=== PATIENT | male | born 2000 | race Two or more races ===

== ENCOUNTER 2025-06-03 09:30 | Outpatient (RCR) | payer MEDICAID, SELFPAY ==
--- NOTE | 2025-05-26 11:15 | PT.OIERPT ---
PT OP Initial Eval Patient Information Outpatient Physical Therapy Treatment Date: 05/26/25 Visit Reasons: RT hand post op Medical Diagnosis: [id number]; s62.336a Treatment Dx #1: Right Hand Pain Treatment Dx #2: Right Hand Weakness Start of Care: 05/26/25 Date of Onset: 04/30/25 Smoking Status Smoking Status: Never smoker Initial Assessment Subjective: Pt is a 24 y/o male reports of right pinky fracture from hitting a wall. Pt was s/p ORIF 03/23/25 with k-wire; k-wire removed 04/30/25. Pt still has pain 7/10 with activities. Pt has limitation with gripping, lifting, chores, self care, work duties, and performing recreational activities. 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
--- NOTE | 2025-06-01 14:20 | PT.ODAYNRPT ---
PT Outpatient Daily Note OP Daily Note Outpatient Physical Therapy Treatment Date: 06/01/25 Visit Reasons: RT hand post op Subjective: Pt's hand and finger is feeling better. Pt can almost make a fist. Objective: Please see flow chart for list of ther ex performed Assessment: progressing with 5th digit flexion AROM post PT session. Pt demonstrate 85% towards full fist AROM Plan: Continue with PT Length of Time (minutes) of Treatment: 30 Minutes Procedure Charges Therapeutic Exercise 30 minutes: Yes
--- NOTE | 2025-06-03 09:35 | PT.ODAYNRPT ---
PT Outpatient Daily Note OP Daily Note Outpatient Physical Therapy Treatment Date: 06/03/25 Visit Reasons: RT hand post op Subjective: Pt has been using a ball to squeeze at home. Pt can now make a full fist Objective: Please see flow chart for list of ther ex performed Assessment: demonstrate full 5th digit flexion AROM and able to make a fist. Pt modified back to yellow digiflex today to isolate to only 5th digit. Plan: Continue with PT Length of Time (minutes) of Treatment: 30 Minutes Procedure Charges Therapeutic Exercise 30 minutes: Yes
== END 2025-06-08 23:59 | disposition home or self-care (01) ==
LOC: CPTX 09:30
PROVIDERS: PCP Nurse Practitioner Gerontology; Referring Provider Nurse Practitioner Gerontology; Visit Provider Nurse Practitioner Gerontology
DX: M79.641 Pain in right hand (principal); R53.1 Weakness; S62.336D Displaced fracture of neck of fifth metacarpal bone, right hand, subsequent encounter for fracture with routine healing; W22.01XD Walked into wall, subsequent encounter
CPT/HCPCS: 97110; 97162

== ENCOUNTER 2025-07-06 09:30 | Outpatient (RCR) | payer MEDICAID, SELFPAY ==
--- NOTE | 2025-06-15 10:29 | PT.ODAYNRPT ---
PT Outpatient Daily Note OP Daily Note Outpatient Physical Therapy Treatment Date: 06/15/25 Visit Reasons: RT hand post op Subjective: Pt's hand is better. Pt can now make a full fist. Pt wants to continue to work on strengthing. Objective: Please see flow chart for list of ther ex performed Assessment: demonstrate full 5th digit flexion AROM. Pt's hand exercise progress to red with good tolerance to new resistance Plan: Continue with PT Length of Time (minutes) of Treatment: 30 Minutes Procedure Charges Therapeutic Exercise 30 minutes: Yes
--- NOTE | 2025-06-17 12:59 | PT.ODAYNRPT ---
PT Outpatient Daily Note OP Daily Note Outpatient Physical Therapy Treatment Date: 06/17/25 Visit Reasons: RT hand post op Subjective: Pt reports R hand is doing better, notices he can make a fist now. Objective: Please see flow sheet for ther ex list. R 85 lbs, L 120 lbs SKIP score. 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 Plan: Continue with pOC. Length of Time (minutes) of Treatment: 30 Minutes Procedure Charges Therapeutic Exercise 30 minutes: Yes
--- NOTE | 2025-06-22 09:56 | PT.ODAYNRPT ---
PT Outpatient Daily Note OP Daily Note Outpatient Physical Therapy Treatment Date: 06/22/25 Visit Reasons: RT hand post op Subjective: Pt reports progress with hand. Objective: Please see flow sheet for ther ex list. Assessment: Progressed resistance and weight for gripping exercises, pt tolerated well. Plan: Continue with poC. Length of Time (minutes) of Treatment: 30 Minutes Procedure Charges Therapeutic Exercise 30 minutes: Yes
--- NOTE | 2025-06-24 10:39 | PT.ODAYNRPT ---
PT Outpatient Daily Note OP Daily Note Outpatient Physical Therapy Treatment Date: 06/24/25 Visit Reasons: RT hand post op Subjective: Pt reports R hand is doing better. 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 Objective: Please see flow sheet for ther ex list. Assessment: Added functional R UE exercises, pt tolerated well. Plan: Continue with poC. Length of Time (minutes) of Treatment: 30 Minutes Procedure Charges Therapeutic Exercise 30 minutes: Yes
--- NOTE | 2025-07-06 11:51 | PT.ODS1RPT ---
PT OP Progress/Discharge Note Date of Service: 07/06/25 Progress Note/DC Note Progress Note/Discharge Note: DC Note Patient Information Visit Reasons: RT hand post op Medical Diagnosis: [id number]; [id number] Treatment Dx #1: Right Hand Pain Treatment Dx #2: Right Hand Weakness Service Continue Service or Discharge: Continue Service Status Subjective: Pt's hand feels good. Pt denies of pain and has been able to perform all ADLs. At this time Pt feels comfortable being release from care with exercises to continue at home. 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 Pt has met most goals set in therapy and will no longer benefit from physical therapy. Pt was instructed on HEP last session and educated to continue exercises to maintain overall mobility. Pt performed all exercises safely, thank you for your referrals. Plan: D/C home with HEP and follow up with MD [facility] Procedure Charges Therapeutic Exercise 30 minutes: Yes
== END 2025-07-09 23:59 | disposition home or self-care (01) ==
LOC: CPTX 09:30
PROVIDERS: PCP Nurse Practitioner Gerontology; Referring Provider Nurse Practitioner Gerontology; Visit Provider Nurse Practitioner Gerontology
DX: M79.641 Pain in right hand (principal); R53.1 Weakness; S62.336D Displaced fracture of neck of fifth metacarpal bone, right hand, subsequent encounter for fracture with routine healing; W22.09XD Striking against other stationary object, subsequent encounter
CPT/HCPCS: 97110